=== PATIENT | male | born 1965 | race African-American/Black ===

== ENCOUNTER 2017-06-26 19:47 | Emergency (ER) | payer OTHER ==
[~2017-06-26] VITALS: Ht 175.3 cm; Wt 147.4 kg
[2017-06-26 19:55] VITALS: BP 189/88
[2017-06-26] MEDS ORDERED: ORPHENADRINE CITRATE 60 MG/2 ML VIAL. IM ONE (20:30)
[2017-06-26] MEDS ORDERED: KETOROLAC 60 MG/2 ML INJ. IM ONE (20:30)
[2017-06-26] MEDS ORDERED: CYCL5TAB PO (20:59)
[2017-06-26] MEDS ORDERED: HYDR-971 PO (21:00)
--- NOTE | 2017-06-26 21:00 | PHYS DOC ---
Past Medical History Past Medical History: Diabetes-Type II, Hypertension Past Surgical History: No Surgical History Alcohol Use: None Drug Use: None Adult General Chief Complaint Chief Complaint: HIP PAIN HPI HPI Patient is a 51 year old male who presents the ED complaining of left hip pain 2 days. States pain goes from left buttock down left leg. Pain occurred after bowling. Describes pain as sharp. Rates pain as 6 out of 10. Denies trauma to joint, bowel/bladder changes, saddle anesthesia, fever, inability to walk, abdominal pain, chest pain, shortness of breath, dizziness or seizure. Review of Systems Review of Systems Constitutional: Denies fever or chills [] Eyes: Denies change in visual acuity, redness, or eye pain [] HENT: Denies nasal congestion or sore throat [] Respiratory: Denies cough or shortness of breath [] Cardiovascular: No additional information not addressed in HPI [] GI: Denies abdominal pain, nausea, vomiting, bloody stools or diarrhea [] : Denies dysuria or hematuria [] Musculoskeletal: Denies back pain. Complains of hip pain. [] Integument: Denies rash or skin lesions [] Neurologic: Denies headache, focal weakness or sensory changes [] Endocrine: Denies polyuria or polydipsia [] Current Medications Current Medications Current Medications Medications (Trade) Dose Ordered Sig/David Start Time Stop Time Status Last Admin Dose Admin Ketorolac Tromethamine (Toradol Im) 60 mg 1X ONCE 06/26/17 20:30 06/26/17 20:37 DC 06/26/17 20:49 60 MG Orphenadrine Citrate (Norflex) 60 mg 1X ONCE 06/26/17 20:30 06/26/17 20:37 DC 06/26/17 20:49 60 MG Allergies Allergies Allergies Coded Allergies Type Severity Reaction Last Updated Verified No Known Drug Allergies 09/25/14 No Physical Exam Physical Exam Constitutional: Well developed, well nourished, no acute distress, non-toxic appearance. [] HENT: Normocephalic, atraumatic, bilateral external ears normal, oropharynx moist, no oral exudates, nose normal. [] Eyes: PERRLA, EOMI, conjunctiva normal, no discharge. [] Neck: Normal range of motion, no tenderness, supple, no stridor. [] Cardiovascular:Heart rate regular rhythm, no murmur [] Lungs & Thorax: Bilateral breath sounds clear to auscultation [] Abdomen: Bowel sounds normal, soft, no tenderness, no masses, no pulsatile masses. [] Skin: Warm, dry, no erythema, no rash. [] Back: No tenderness, no CVA tenderness. [] Extremities: NO BONY TENDERNESS. PAIN RADIATES DOWN LEFT LEG IN SCIATIC NERVE DISTRIBUTION. No tenderness, no cyanosis, no clubbing, ROM intact, no edema. [] Neurologic: Alert and oriented X 3, normal motor function, normal sensory function, no focal deficits noted. [] Psychologic: Affect normal, judgement normal, mood normal. [] Current Patient Data Vital Signs Vital Signs Date Time Temp Pulse Resp B/P (MAP) Pulse Ox O2 Delivery O2 Flow Rate FiO2 06/26/17 19:55 97.4 95 16 96 Room Air 97.4 EKG EKG [] Radiology/Procedures Radiology/Procedures [] Course & Med Decision Making Course & Med Decision Making Patient's pain improved with Toradol and Norflex given in ED. Patient able to ambulate without pain. Neurovascular intact. Denies saddle anesthesia or bowel/ bladder changes. Discussed symptomatic treatment and exercises. Discussed follow -up with orthopedics in 1-2 days. Provided contact information/education. Discussed reasons to return to the ED. Patient understands and agrees with plan. Pertinent Labs and Imaging studies reviewed. (See chart for details) [] Dragon Disclaimer Dragon Disclaimer This electronic medical record was generated, in whole or in part, using a voice recognition dictation system. Departure Departure Impression: Primary Impression: Sciatica Disposition: 01 HOME, SELF-CARE Condition: IMPROVED Referrals: HERMELINDA GANNON MD (PCP) RENO ROMERO II, MD Patient Instructions: Sciatica Scripts Hydrocodone/Apap 5-325 (NORCO 5-325 TABLET) 1 Each Tablet 1 TAB PO TID, #10 TAB Prov: CADEN CERVANTES 06/26/17 Cyclobenzaprine Hcl (CYCLOBENZAPRINE HCL) 5 Mg Tablet 1 TAB PO TID, #10 TAB Prov: CADEN CERVANTES 06/26/17 CADEN CERVANTES Jun 26, 2017 21:00
== END 2017-06-26 21:06 | disposition home or self-care (01) ==
LOC: ER 19:47
DX: M54.32 Sciatica, left side (principal); E11.9 Type 2 diabetes mellitus without complications; I10 Essential (primary) hypertension
CPT/HCPCS: 96372; 99284; J1885; J2360